=== PATIENT | male | born 1970 | race Caucasian/White ===

== ENCOUNTER 2022-07-09 20:34 | Emergency (ER) | payer MEDICAID ==
[~2022-07-09] VITALS: Ht 170.2 cm; Wt 90.7 kg
[~2022-07-09 20:34] MED LIST: DOXY100C PO; GLU500 PO; LEVO750T64 PO
[2022-07-09 20:42] VITALS: BP_SYST 146
--- NOTE | 2022-07-09 21:12 | NUR ---
Pt brought by self, A&Ox4, pt presents to ER with L knee pain after trip and fall,skin pink and warm, cap refill <3, denies other injuries.
--- NOTE | 2022-07-09 21:27 | NUR ---
Patient to ER bed 07 to gown for evaluation. Side rails up.
[2022-07-09] MEDS ORDERED: IBUP-1970 PO (21:47)
--- NOTE | 2022-07-09 21:56 | NUR ---
HUGO wrap applied to the left knee. Pt deneis discomfort at this time.
[2022-07-09 22:17] VITALS: BP_SYST 146
--- NOTE | 2022-07-09 22:17 | NUR ---
Patient given written and verbal discharge instructions and verbalizes understanding. ER DR. FRASER discussed with patient the results and treatment provided. Patient in stable condition. ID arm band removed. Rx of motrin given. Patient educated on pain management and to follow up with PMD. Pain Scale 0. Opportunity for questions provided and answered. Medication side effect fact sheet provided.
== END 2022-07-09 22:17 | disposition home or self-care (01) ==
LOC: SED 20:34
DX: M25.462 Effusion, left knee (principal); M23.92 Unspecified internal derangement of left knee; E11.9 Type 2 diabetes mellitus without complications; Z79.899 Other long term (current) drug therapy
CPT/HCPCS: 73564; 99283